=== PATIENT | male | born 1950 | race Caucasian/White ===

== ENCOUNTER 2025-07-16 08:48 | Day surgery (SDC) | payer MEDICARE ==
[2025-07-16] MEDS: Lactated Ringers 1,000 ML IV SCH (09:00)
[2025-07-16] MEDS ORDERED: Midazolam 1 MG/ML 2 ML SDV ONE (09:58)
[2025-07-16] MEDS ORDERED: Propofol 200 MG/20 ML SDV ONE (09:58)
[2025-07-16] MEDS ORDERED: Sodium Chloride 0.9% 10 ML Syringe FLUSH PRN (10:00)
== END 2025-07-16 12:55 | disposition home or self-care (01) ==
LOC: KA.SDS 08:48
PROVIDERS: ATTEND Family Medicine
DX: Z12.11 Encounter for screening for malignant neoplasm of colon (principal); K57.30 Diverticulosis of large intestine without perforation or abscess without bleeding; K64.8 Other hemorrhoids; Z91.030 Bee allergy status; Z79.82 Long term (current) use of aspirin; Z79.899 Other long term (current) drug therapy; Z86.0100 Personal history of colon polyps, unspecified
CPT/HCPCS: 00811; 99100; J2250; J2704; J7120